=== PATIENT | female | born 1965 | race Caucasian/White ===

== ENCOUNTER 2017-10-20 12:00 | Emergency (ER) | payer OTHER, MEDICAID ==
[2017-10-20 12:19] VITALS: PULSE 87; TEMP 98.8; O2SAT 97
[2017-10-20] MEDS ORDERED: LET GEL TOPICAL 1 EA SYR TP ONE (13:07)
[2017-10-20] MEDS ORDERED: TDAP ADULT 0.5 ML INJ (BOOSTRIX) IM ONE (13:07)
--- NOTE | 2017-10-20 13:07 | EDPHY ---
H & P Stated Complaint: Sliced L ring finger Time Seen by Provider: 10/20/17 13:06 HPI/ROS: HPI: This is a 52-year-old female who presents with Chief Complaint: Sliced left ring finger Location: Left pinky finger Quality: Injury Duration: Prior to arrival Signs and Symptoms: + bleeding, no radiation, no numbness, no weakness, no tingling, no incontinence, no decreased range of motion, no swelling, + pain, + nail injury Timing: Acute Severity: Moderate Context: Patient is Right-hand dominant reports that she was closing her glass door at her home when she accidentally cut the tip off of her left little finger when her finger got wedged between the door and the jam. She reports that she applied direct pressure to control the bleeding. Her pain is moderate , worsened with touching the area, nonradiating in nature. Last Tetanus booster in this ER 2010. Denies any paresthesias/skin color changes/decreased range of motion. She is concerned that her nail is injured. Patient has a history of rheumatoid arthritis. Modifying Factors: Direct pressure Comment: ROS: see HPI Constitutional: No fever, no chills, no weight loss Eyes: No blurred vision Respiratory: No shortness of breath, no cough Cardiovascular: No chest pain Gastrointestinal: No nausea, no vomiting no diarrhea Genitourinary: No dysuria Extremities: No myalgias Neurologic: No weakness, no numbness Skin: No rashes Hematologic: No bruising, no bleeding MEDICAL/SURGICAL/SOCIAL HISTORY: Medical history: Rheumatoid arthritis Surgical history: Social history: Employed CONSTITUTIONAL: Pleasant adult white female, awake and alert, no obvious distress HEENT: Atraumatic and normocephalic, PERRL, EOMI. Tympanic membranes clear. Oropharynx clear, no exudate and moist pink mucosa. Airway patent. No lymphadenopathy. No meningismus. Cardiovascular: Normal S1/S2, regular rate, regular rhythm, without murmur rub or gallop. PULMONARY/CHEST: Symmetrical and nontender. Clear to auscultation bilaterally. Good air movement. No accessory muscle usage. ABDOMEN: Soft, nondistended, nontender, no rebound, no guarding, no peritoneal signs, no masses or organomegaly. No CVAT. EXTREMITIES: 2/2 radial pulses, strength 5/5, left pinky finger distal tip complete amputation; unable to visualize bone fragment; leaving half of the fingernail. DIP/PIP/MCP joints flexion extension fully intact. Good light touch sensation. no clubbing, no cyanosis or edema. NEUROLOGICAL: no focal neuro deficits. GCS 15. SKIN: Warm and dry, no erythema. no rash. Good capillary refill. Source: Patient Exam Limitations: No limitations - Personal History LMP (Females 10-55): 15-21 Days Ago Current Tetanus Diphtheria and Acellular Pertussis (TDAP): No - Medical/Surgical History Hx Asthma: No Hx Chronic Respiratory Disease: No Hx Diabetes: No Hx Cardiac Disease: No Hx Renal Disease: No Hx Cirrhosis: No Hx Alcoholism: No Hx HIV/AIDS: No Hx Splenectomy or Spleen Trauma: No Other PMH: RA, x 1 - Social History Smoking Status: Never smoked Constitutional: Initial Vital Signs Temperature (C) 37.1 C 10/20/17 12:05 Heart Rate 87 10/20/17 12:05 Respiratory Rate 18 10/20/17 12:05 Blood Pressure 157/101 H 10/20/17 12:05 O2 Sat (%) 97 10/20/17 12:05 O2 Delivery Mode Room Air Allergies/Adverse Reactions: No Known Allergies Allergy (Verified 10/20/17 12:15) Home Medications: Medication Instructions Recorded Cephalexin [Keflex (*)] 500 mg PO QID #28 cap 10/20/17 Diclofenac Sodium [Voltaren 50 MG 50 mg PO 10/20/17 (*)] Tocilizumab [Actemra] 4 mg IV 10/20/17 oxyCODONE/APAP 5/325 [Percocet 1 - 2 tab PO Q4H PRN #10 tab 10/20/17 5/325 (*)] traMADol [Ultram 50 mg (*)] 50 mg PO 10/20/17 Medical Decision Making Procedures: Procedure: Splint placement. A tube gauze and finger splint was applied by the Emergency Room bottle house quality control technician. After application of the splint I returned and re-examined the patient. The splint was adequately immobilizing the joint and distal to the splint the patient's circulation and sensation was intact. ED Course/Re-evaluation: Finger x-ray, IV medications, topical medications ordered Tetanus up-to-date Given 1 g Ancef X-ray reviewed and shows no acute fracture/foreign body/dislocation ED decision to consult; spoke with Dr. Teresa PA and Dr. Teresa reviewed the films. Agreed with Ancef and Keflex prescription, pain control, moist dressing and splinting. Xeroform, tube gauze, finger splint applied. Advises patient to call the office this afternoon or 1st thing in the morning for her follow-up appointment time tomorrow. No signs of neurovascular compromise/tenting of skin/compartment syndrome/ extremities and joints examined above and below area of concern and are neurovascularly intact. This patient was seen under the supervision of my secondary supervising physician. I evaluated care for this patient independently. Discussed this patient with Dr. Flores who did not see the patient. Differential Diagnosis: Differential diagnosis includes but is not limited to nerve injury, tendon injury, phalanx fracture. - Data Points Medications Given: Discontinued Medications Diphtheria/Tetanus/Acell Pertussis (Boostrix) 0.5 ml IM .ONCE ONE Stop: 10/20/17 13:08 Last Admin: 10/20/17 13:40 Dose: Not Given Cefazolin Sodium/Dextrose (Ancef 1 Gm (Premix)) 50 mls @ 200 mls/hr IV EDNOW ONE PRN Reason: Protocol Stop: 10/20/17 13:21 Last Admin: 10/20/17 13:39 Dose: 50 mls Tetracaine/Epinephrine/Lidocaine (Let Gel Topical) 1 ea TP EDNOW ONE Stop: 10/20/17 13:08 Last Admin: 10/20/17 13:40 Dose: 1 ea Departure - Departure Disposition: Home, Routine, Self-Care Condition: Good Instructions: Finger Amputation (ED) Additional Instructions: Keep the dressing/splint dry and in place until seen by Hand. After 48 hours, you may remove the dressing; wash the site daily with mild soap and water; then pat dry. Take Tylenol 650 mg every 4 hours and/or Ibuprofen 600 mg every 8 hours with food as needed for pain. Use Percocet every 6 hours as needed for severe/break through pain. Do not use Tylenol and Percocet concomitantly. Apply ice for 30 minutes at a time; 2-3 times per day for the next 1-2 days. Please call Orthopedics/Hand (Dr. Reed Teresa) this afternoon or tomorrow morning for your appointment time tomorrow or Friday. The x-rays obtained in the emergency department today demonstrate no evidence of an obvious fracture. Sometimes fractures are not obvious on the initial set of x-rays performed in the ED. For this reason, you should have repeat x-rays performed in 7-10 days if you are having any pain exclude the possibility of an occult fracture. Referrals: Jax Vital MD [Primary Care Provider] - As per Instructions Reed Teresa MD [Medical Doctor] - As per Instructions Prescriptions: Cephalexin [Keflex (*)] 500 mg PO QID #28 cap oxyCODONE/APAP 5/325 [Percocet 5/325 (*)] 1 - 2 tab PO Q4H PRN #10 tab PRN Reason: Pain, Severe
[2017-10-20 14:50] VITALS: BP 140/90; RESP 20
== END 2017-10-20 14:49 | disposition home or self-care (01) ==
DX: S68.615A Complete traumatic transphalangeal amputation of left ring finger, initial encounter (principal); W23.0XXA Caught, crushed, jammed, or pinched between moving objects, initial encounter; Y92.009 Unspecified place in unspecified non-institutional (private) residence as the place of occurrence of the external cause
CPT/HCPCS: 73140; 96365; 99284; J0690

== ENCOUNTER → 2018-01-01 | Outpatient (CLI) | payer OTHER, MEDICAID | LOC: BMCIMAGING 10:00 | PROVIDERS: ATTEND Internal Medicine Rheumatology | DX: S42.431A Displaced fracture (avulsion) of lateral epicondyle of right humerus, initial encounter for closed fracture (principal) ==